=== PATIENT | female | born 1965 | race Caucasian/White ===

== ENCOUNTER 2017-03-30 07:16 | Day surgery (SDC) | payer OTHER ==
[2017-03-26 09:57] VITALS: BMI 34.3
[2017-03-30] MEDS ORDERED: PROPOFOL 20 ML ONE ×2 (07:22)
[2017-03-30] MEDS ORDERED: LIDOCAINE HCL/PF 2% SDV 5ML VIAL ONE (07:24)
[2017-03-30 08:52] VITALS: PULSE 76; TEMP 97.5
[2017-03-30 09:08] VITALS: BP 124/61
== END 2017-03-30 09:10 | disposition home or self-care (01) ==
LOC: FASU-ENDO 07:16
PROVIDERS: ATTEND Internal Medicine Gastroenterology
PROC: 0DJD8ZZ Inspection of Lower Intestinal Tract, Via Natural or Artificial Opening Endoscopic (ICD-10-PCS; principal; 2017-03-30 08:26)
DX: Z12.11 Encounter for screening for malignant neoplasm of colon (principal)